=== PATIENT | female | born 1985 ===

== ENCOUNTER 2018-12-15 09:08 | Emergency (ER) | payer OTHER ==
[2018-12-15 09:08] VITALS: BMI 40.0
[2018-12-15 09:21] VITALS: RESP 18
--- NOTE | 2018-12-15 09:43 | ED PDOC ---
Arrival/HPI - General Chief Complaint: Female Genitourinary Historian: Patient - History of Present Illness Narrative History of Present Illness (Text): 12/15/18 09:39 33 y/o female, no significant pmh, nkda, c/o vaginal spotting on and off 2-3 weeks. Pt. has no fever or chills, stated that she has on off vaginal spotting, no flank pain, no fever or chills, no headache or night sweat, no pain, no numbness or tingling, no palpitation, no rash, no other medical or psychological complaints. Past Medical History - Provider Review Nursing Documentation Reviewed: Yes - Cardiac Hx Cardiac Disorders: No - Pulmonary Hx Respiratory Disorders: No - Neurological Hx Neurological Disorder: No - HEENT Hx HEENT Disorder: No - Renal Hx Renal Disorder: No - Endocrine/Metabolic Hx Endocrine Disorders: Yes Hx Diabetes Mellitus Type 1: Yes - Hematological/Oncological Hx Blood Disorders: No - Integumentary Hx Dermatological Disorder: No - Musculoskeletal/Rheumatological Hx Musculoskeletal Disorders: No - Gastrointestinal Hx Gastrointestinal Disorders: No - Genitourinary/Gynecological Hx Genitourinary Disorders: No - Psychiatric Hx Psychophysiologic Disorder: No Hx Substance Use: Yes - Anesthesia Hx Anesthesia: No Hx Anesthesia Reactions: No Hx Malignant Hyperthermia: No Family/Social History - Physician Review Nursing Documentation Reviewed: Yes Family/Social History: Unknown Family HX Smoking Status: Light Smoker < 10 Cigarettes Daily Hx Alcohol Use: No Hx Substance Use: Yes Substance used: marijuana/daily Allergies/Home Meds Allergies/Adverse Reactions: Allergies No Known Allergies Allergy (Verified 10/01/15 09:08) Home Medications: Home Meds Medication Instructions Recorded Confirmed Metformin Hydrochloride [Metformin] 500 mg PO BID 10/01/15 10/01/15 Insulin Regular, Human [Humulin R 500 units IM TID 12/15/18 12/15/18 U-500] Liraglutide [Victoza 2-Vince] 1.8 mg DAILY 12/15/18 12/15/18 Losartan [Cozaar] 100 mg PO DAILY 12/15/18 12/15/18 Simvastatin 10 mg PO DAILY 12/15/18 12/15/18 Review of Systems - Review of Systems Constitutional: absent: Fatigue, Fevers Eyes: absent: Vision Changes ENT: absent: Hearing Changes Respiratory: absent: SOB, Cough Cardiovascular: absent: Chest Pain Gastrointestinal: absent: Diarrhea, Nausea, Vomiting Genitourinary Female: absent: Dysuria, Frequency, Hematuria, Urine Output Changes Musculoskeletal: absent: Arthralgias, Back Pain Neurological: absent: Headache, Dizziness Psychiatric: absent: Anxiety, Depression, Suicidal Ideation Physical Exam Vital Signs Reviewed: Yes Vital Signs Temp Pulse Resp BP Pulse Ox 12/15/18 09:08 98.4 F 99 H 18 122/85 98 Temperature: Afebrile Blood Pressure: Normal Pulse: Regular Respiratory Rate: Normal Appearance: Positive for: Well-Appearing, Non-Toxic, Comfortable Pain Distress: None Mental Status: Positive for: Alert and Oriented X 3 - Systems Exam Head: Present: Atraumatic, Normocephalic Pupils: Present: PERRL Extroacular Muscles: Present: EOMI Conjunctiva: Present: Normal Mouth: Present: Moist Mucous Membranes Neck: Present: Normal Range of Motion Respiratory/Chest: Present: Clear to Auscultation, Good Air Exchange. No: Respiratory Distress, Accessory Muscle Use Cardiovascular: Present: Regular Rate and Rhythm, Normal S1, S2. No: Murmurs Abdomen: No: Tenderness, Distention, Peritoneal Signs, Rebound, Guarding Genitourinary/Pelvic Exam: Present: Other (Pt. declined) Back: Present: Normal Inspection Upper Extremity: Present: Normal Inspection. No: Cyanosis, Edema Lower Extremity: Present: Normal Inspection. No: Edema Neurological: Present: GCS=15, CN II-XII Intact, Speech Normal Skin: Present: Warm, Dry, Normal Color. No: Rashes Psychiatric: Present: Alert, Oriented x 3, Normal Insight, Normal Concentration Medical Decision Making ED Course and Treatment: 12/15/18 09:43 -labs -sonogram -Observe and reassess 12/15/18 13:44 -Urine hcg is negative -UA show +UTI with +trich, flagyl 2gm po and macrobid ordered -Labs show no acute findings except wbc 12.3 (afebrile, likely pain/stress induced). -Sonogram show Unremarkable pelvic ultrasound. -Pt. has no pain or discomfort, all labs/radiology results explained. -Discharge home with macrobid, duexis for pain as needed, follow up with your own pmd and urologist/obgyn within 2 days, repeat the UA with your own pmd after completion of antibiotics, return to the ER for any new or worsening signs or symptoms. - RAD Interpretation Radiology Orders: 12/15/18 09:35 PELVIS ULTRASOUND [US] Routine TRANSVAGINAL [US] Stat Date of service: 12/15/2018 HISTORY: vaginal spotting on and off couple weeks COMPARISON: None available. TECHNIQUE: Transpelvic and transvaginal FINDINGS: UTERUS: Measures 12.9 x 4.8 x 6.6 cm. Normal in size and appearance. No fibroid or other mass lesion seen. ENDOMETRIUM: Measures 4.7- 11 mm in diameter. No evidence of IUP CERVIX: No cervical abnormality identified. RIGHT OVARY: Measures 3.8 x 3.5 x 3.5 cm. No solid mass. Normal flow. LEFT OVARY: Measures 4.1 x 2.2 x 4.5 cm. No solid mass. Flow cannot be assessed due to body habitus. 3 cm cyst FREE FLUID: No significant free fluid noted. OTHER FINDINGS: None. IMPRESSION: Unremarkable pelvic ultrasound. Collection Teller: Radiologist - PA / MACHINE CEMENTER AND FOLDER / Resident Statement MD/ has reviewed & agrees with the documentation as recorded. Disposition/Present on Arrival - Present on Arrival Any Indicators Present on Arrival: No History of DVT/PE: No History of Uncontrolled Diabetes: No Urinary Catheter: No History of Decub. Ulcer: No History Surgical Site Infection Following: None - Disposition Have Diagnosis and Disposition been Completed?: Yes Diagnosis: Menometrorrhagia, Trichomonas infection, UTI (urinary tract infection) Disposition: HOME/ ROUTINE Disposition Time: 11:08 Patient Plan: Discharge Patient Problems: Current Active Problems Problem Status Onset Menometrorrhagia Acute Trichomonas infection Acute UTI (urinary tract infection) Acute Condition: IMPROVED Additional Instructions: -Discharge home with macrobid, duexis for pain as needed, follow up with your own pmd and urologist/obgyn within 2 days, repeat the UA with your own pmd after completion of antibiotics, return to the ER for any new or worsening signs or symptoms. Prescriptions: Ibuprofen/Famotidine [Duexis 26.6 mg-800 mg] 1 tab PO TID PRN #21 tab PRN Reason: Other Nitrofurantoin Macrocrystals [Macrobid] 100 mg PO BID #14 cap Referrals: Fidel Lira MD [Primary Care Provider] - Follow up with primary Forms: [employer] ([employer]), WORK NOTE
[2018-12-15 09:54] LABS: URINE BILIRUBIN NEGATIVE (NEGATIVE); URINE BLOOD LARGE (NEGATIVE); URINE GLUCOSE (UA) 500 mg/dL (NEGATIVE); URINE LEUKOCYTE ESTERASE TRACE Leu/uL (NEGATIVE); URINE PROTEIN NEGATIVE mg/dL (<30 mg/dL); URINE UROBILINOGEN 0.2 E.U./dL (<1 E.U./dL)
[2018-12-15 09:56] LABS: URINE APPEARANCE TURBID (CLEAR); URINE COLOR YELLOW (YELLOW)
[2018-12-15 10:04] LABS: URINE BACTERIA TRACE /hpf; URINE RBC 0 - 2 /hpf (0-2)
[2018-12-15 10:08] LABS: BASO # 0.02 K/mm3 (0.0-2.0); BASO % 0.2 % (0.0-3.0); EOS # 0.2 (0.0-0.7); EOS % 1.6 % (1.5-5.0); GRAN # 8.57 (1.4-6.5); GRAN % 69.6 % (50.0-68.0); HEMOGLOBIN 15.1 g/dL (12.0-16.0); LYMPH # 2.7 (1.2-3.4); LYMPH % 21.9 % (22.0-35.0); MEAN CELL VOLUME 87.4 fl (80.0-105.0); MEAN CORPUSCULAR HEMOGLOBIN 29.7 pg (25.0-35.0); MEAN CORPUSCULAR HGB CONC 33.9 g/dl (31.0-37.0); MEAN PLATELET VOLUME 9.6 fl (7.0-11.0); MONO # 0.8 (0.1-0.6); MONO % 6.7 % (1.0-6.0); RBC 5.09 10^6/uL (3.5-6.1); RED CELL DISTRIBUTION WIDTH 13.3 % (11.5-14.5); WHITE BLOOD COUNT 12.3 10^3/uL (4.5-11.0)
[2018-12-15 10:16] LABS: ALB/GLOB RATIO 1.2 (1.1-1.8); ALBUMIN 4.2 g/dL (3.0-4.8); ALT/SGPT 41 U/L (7-56); AST/SGOT 25 U/L (14-36); BLOOD UREA NITROGEN 13 mg/dL (7-21); CALCIUM 8.9 mg/dL (8.4-10.5); GFR NON-AFRICAN AMERICAN > 60; LIPASE 107 U/L (23-300)
--- NOTE | 2018-12-15 13:38 | US ---
Date of service: 12/15/2018 HISTORY: vaginal spotting on and off couple weeks COMPARISON: None available. TECHNIQUE: Transpelvic and transvaginal FINDINGS: UTERUS: Measures 12.9 x 4.8 x 6.6 cm. Normal in size and appearance. No fibroid or other mass lesion seen. ENDOMETRIUM: Measures 4.7- 11 mm in diameter. No evidence of IUP CERVIX: No cervical abnormality identified. RIGHT OVARY: Measures 3.8 x 3.5 x 3.5 cm. No solid mass. Normal flow. LEFT OVARY: Measures 4.1 x 2.2 x 4.5 cm. No solid mass. Flow cannot be assessed due to body habitus. 3 cm cyst FREE FLUID: No significant free fluid noted. OTHER FINDINGS: None. IMPRESSION: Unremarkable pelvic ultrasound.
[2018-12-15 13:45] VITALS: BP 115/63; PULSE 89; O2SAT 98
[2018-12-15 13:51] VITALS: TEMP 98
== END 2018-12-15 13:51 | disposition home or self-care (01) ==
LOC: ED 09:08
DX: A59.9 Trichomoniasis, unspecified (principal); N39.0 Urinary tract infection, site not specified; N92.1 Excessive and frequent menstruation with irregular cycle; F17.210 Nicotine dependence, cigarettes, uncomplicated